=== PATIENT | female | born 1955 | race Caucasian/White ===

== ENCOUNTER 2020-06-27 11:17 | Outpatient (CLI) | payer MEDICARE, MEDICAID | END 2020-06-27 11:18 | disposition home or self-care (01) | LOC: CSHCT 11:17 | PROVIDERS: ATTEND Physician Assistant Medical | DX: K60.2 Anal fissure, unspecified (principal); K62.5 Hemorrhage of anus and rectum; R10.2 Pelvic and perineal pain; R10.32 Left lower quadrant pain; K21.9 Gastro-esophageal reflux disease without esophagitis; R19.4 Change in bowel habit; D35.01 Benign neoplasm of right adrenal gland; Z98.890 Other specified postprocedural states; I70.90 Unspecified atherosclerosis | CPT/HCPCS: 74176 ==

== ENCOUNTER 2021-05-01 19:13 | Inpatient (IN) | payer MEDICARE, MEDICAID ==
[2021-05-01] MEDS ORDERED: Ondansetron PF 4 MG/2 ML Vial ONE (20:09)
[2021-05-01] MEDS ORDERED: Morphine 4 MG/ML VIAL ONE ×4 (20:09→23:35)
[2021-05-01 20:14] LABS: #Basophils 0.1 10x3/uL (0.0-0.2); #Eosinphils 0.6 10x3/uL (0.0-0.5); #Monocytes 0.6 10x3/uL (0.0-1.1); %Basophils 0.6 % (0.0-2.0); %Eosinophils 7.5 % (0.0-6.0); %Lymphocytes 19.8 % (18.0-47.0); %Monocytes 7.9 % (0.0-10.0); %Neutrophils 63.9 % (40.0-75.0); Hemoglobin 14.2 g/dL (12.0-15.5); Mean Corpuscular HGB CONC 33.3 g/dL (32.0-36.0); Mean Corpuscular Hemoglobin 33.3 pg (27.0-33.0); Mean Platelet Volume 8.7 fl (7.4-10.4); Platelet Count 244 10x3/uL (150-450); RBC Distribution Width 12.4 % (11.5-14.5); Red Blood Cell (RBC) Count 4.26 10x6/uL (3.90-5.03); White Blood Cell (WBC) Count 7.9 10x3/uL (3.5-10.5)
[2021-05-01 20:24] LABS: ALT (SGPT) 14 U/L (8-55); AST (SGOT) 16 U/L (5-34); Albumin 4.5 g/dL (3.4-4.8); Alkaline Phosphatase 114 U/L (40-110); Anion Gap 14 mmol/L (10-20); BUN (Urea Nitrogen) 12 mg/dL (9.8-20.1); Bilirubin, Total 0.3 mg/dL (0.2-1.2); CK (CPK) 61 U/L (29-168); Calc. Creatinine Clearance 0 mL/min (70-130); Calcium 9.4 mg/dL (7.8-10.44); Carbon Dioxide 26 mmol/L (23-31); Chloride 103 mmol/L (98-107); Globulin 2.6 g/dL (2.4-3.5); Glucose 116 mg/dL (80-115); Lipase 11 U/L (8-78); Magnesium 1.9 mg/dL (1.6-2.6); Potassium 4.2 mmol/L (3.5-5.1); Protein, Total 7.1 g/dL (5.8-8.1); Sodium 139 mmol/L (136-145)
[2021-05-01 21:45] LABS: Bilirubin Neg (Negative); Blood, Urine 25 (Negative); Clarity Clear (Clear); Glucose, Urine (Dipstick) Normal (Negative); Ketone, Urine Negative (Negative); Leukocyte 500 (Negative); Nitrite Negative (Negative); Protein, Urine (Dipstick) Negative (Neg-Trace); Urobilinogen Normal mg/dL (Less than 2); pH, Urine 6.5 (5.0-9.0)
[2021-05-01 21:55] LABS: Bacteria/HPF 3+ HPF (None Seen); Mucous/LPF 1+ LPF (<2+); RBC/HPF 0-3 HPF (0-3); Squamous Epithelial 0-3 HPF (0-3)
[2021-05-02] MEDS ORDERED: Ondansetron PF 4 MG/2 ML Vial IVP PRN (00:24)
[2021-05-02] MEDS ORDERED: HYDROmorphone 0.5 MG/0.5 ML SYRINGE SLOW IVP SCH (00:30)
[2021-05-02] MEDS ORDERED: Promethazine HCl 12.5 MG in Sodium Chloride 0.9% 50 ML IVPB SCH (00:30)
[2021-05-02] MEDS ORDERED: Fentanyl 100 MCG/2 ML VIAL SLOW IVP PRN (00:30)
[2021-05-02 00:39] VITALS: BMI 24.9
[2021-05-02] MEDS: cefTRIAXone\\ROCEPHIN 1 GM in Sodium Chloride 0.9% 100 ML IVPB SCH (01:35)
[2021-05-02] MEDS: Lactated Ringer's 1,000 ML IV SCH ×4 (02:30→23:02)
[2021-05-02] MEDS ORDERED: FLU VACC QS2021-22(65YR UP)/PF 240 MCG/0.7 ML SYRINGE IM ONE (03:30)
[2021-05-02 03:45] LABS: #Basophils 0.1 10x3/uL (0.0-0.2); #Eosinphils 0.1 10x3/uL (0.0-0.5); #Monocytes 0.4 10x3/uL (0.0-1.1); #Neutrophils 12.8 10x3/uL (1.5-8.4); %Basophils 0.4 % (0.0-2.0); %Eosinophils 0.6 % (0.0-6.0); %Lymphocytes 7.5 % (18.0-47.0); Hemoglobin 16.8 g/dL (12.0-15.5); Mean Corpuscular HGB CONC 33.1 g/dL (32.0-36.0); Mean Corpuscular Hemoglobin 33.5 pg (27.0-33.0); Mean Corpuscular Volume 101.4 fl (81.6-98.3); Mean Platelet Volume 9.2 fl (7.4-10.4); Platelet Count 245 10x3/uL (150-450); RBC Distribution Width 12.4 % (11.5-14.5); Red Blood Cell (RBC) Count 5.01 10x6/uL (3.90-5.03); White Blood Cell (WBC) Count 14.6 10x3/uL (3.5-10.5)
[2021-05-02 03:53] LABS: ALT (SGPT) 10 U/L (8-55); AST (SGOT) 14 U/L (5-34); Alkaline Phosphatase 117 U/L (40-110); Anion Gap 15 mmol/L (10-20); BUN (Urea Nitrogen) 11 mg/dL (9.8-20.1); Bilirubin, Total 0.2 mg/dL (0.2-1.2); Calc. Creatinine Clearance 82 mL/min (70-130); Calcium 8.9 mg/dL (7.8-10.44); Carbon Dioxide 22 mmol/L (23-31); Chloride 106 mmol/L (98-107); Globulin 2.8 g/dL (2.4-3.5); Glucose 214 mg/dL (80-115); Potassium 4.6 mmol/L (3.5-5.1); Protein, Total 6.8 g/dL (5.8-8.1); Sodium 138 mmol/L (136-145)
[2021-05-02 03:55] LABS: SARS-CoV-2 NAA Rapid Test Not Detected (NotDetected)
[2021-05-02 04:02] LABS: Platelet Morphology Comment Appears Adequate
[2021-05-02] MEDS: Morphine 4 MG/ML VIAL SLOW IVP PRN (06:01)
[2021-05-02] MEDS: Mometasone 100 MCG/PUFF (1 INHALER) INH SCH ×2 (07:15→19:03)
[2021-05-02] MEDS: Enoxaparin Sodium 40 MG/0.4 ML SYRINGE SC SCH (08:12)
[2021-05-02] MEDS: Famotidine/PF 20 mg/2ml Vial SLOW IVP SCH ×2 (09:26→21:13)
[2021-05-02] MEDS ORDERED: Bupivacaine 0.25% HCL 30 ML VIAL ONE (10:13)
[2021-05-02] MEDS ORDERED: EPINEPHrine 1 MG/ML AMP ONE (10:13)
[2021-05-02] MEDS: Nicotine 21 MG PATCH TD SCH (10:28)
[2021-05-02] MEDS ORDERED: Ondansetron PF 4 MG/2 ML Vial ONE ×2 (11:10→11:23)
[2021-05-02] MEDS ORDERED: Metoclopramide HCl 10 MG/2 ML VIAL ONE (11:23)
[2021-05-02] MEDS ORDERED: Dexamethasone 4 mg/ml Vial ONE (11:23)
[2021-05-02] MEDS ORDERED: Glycopyrrolate 0.2 MG/ML 5 ML SYRINGE ONE (11:23)
[2021-05-02] MEDS ORDERED: Rocuronium Bromide 10 MG/ML (10ML VIAL) ONE (11:23)
[2021-05-02] MEDS ORDERED: PROPOFOL 20 ML ONE (11:23)
[2021-05-02] MEDS ORDERED: Succinylcholine 200 MG/10 ml SYRINGE FS ONE (11:23)
[2021-05-02] MEDS ORDERED: Fentanyl 100 MCG/2 ML VIAL ONE ×2 (11:23→13:41)
[2021-05-02] MEDS ORDERED: Lidocaine 1% PF 5 ML VIAL ONE (11:23)
[2021-05-02] MEDS ORDERED: PHENYLEPHRINE-NS 100 MCG/ML 10 ML SYRINGE ONE (11:50)
[2021-05-02] MEDS ORDERED: fentaNYL Citrate/PF 1,000 MCG, Admixture Fee 1 EACH in Sodium Chloride 0.9% 30 ML IV PRN (13:45)
[2021-05-02] MEDS ORDERED: Promethazine HCl 25 MG/ML VIAL IM PRN (13:45)
[2021-05-02] MEDS ORDERED: Zolpidem Tartrate 5 MG TAB PO PRN (13:45)
[2021-05-02] MEDS ORDERED: Naloxone HCl 0.4 mg/ml Vial IV PRN (13:45)
[2021-05-02 14:41] LABS: Magnesium 1.8 mg/dL (1.6-2.6)
[2021-05-02] MEDS: Ketorolac Tromethamine 30 MG/ML VIAL IVP SCH (18:04)
[2021-05-03] MEDS: cefTRIAXone\\ROCEPHIN 1 GM in Sodium Chloride 0.9% 100 ML IVPB SCH (00:26)
[2021-05-03] MEDS: Ketorolac Tromethamine 30 MG/ML VIAL IVP SCH ×4 (00:27→18:20)
[2021-05-03 05:25] LABS: #Eosinphils 0.2 10x3/uL (0.0-0.5); #Monocytes 1.1 10x3/uL (0.0-1.1); #Neutrophils 7.6 10x3/uL (1.5-8.4); %Basophils 0.3 % (0.0-2.0); %Eosinophils 1.7 % (0.0-6.0); %Lymphocytes 17.7 % (18.0-47.0); %Monocytes 10.4 % (0.0-10.0); %Neutrophils 69.6 % (40.0-75.0); Hemoglobin 12.7 g/dL (12.0-15.5); Mean Corpuscular HGB CONC 31.4 g/dL (32.0-36.0); Mean Corpuscular Volume 104.9 fl (81.6-98.3); Mean Platelet Volume 8.9 fl (7.4-10.4); Platelet Count 209 10x3/uL (150-450); RBC Distribution Width 12.8 % (11.5-14.5); Red Blood Cell (RBC) Count 3.85 10x6/uL (3.90-5.03); White Blood Cell (WBC) Count 10.9 10x3/uL (3.5-10.5)
[2021-05-03 05:27] LABS: Anion Gap 14 mmol/L (10-20); BUN (Urea Nitrogen) 26 mg/dL (9.8-20.1); Calc. Creatinine Clearance 64 mL/min (70-130); Calcium 8.5 mg/dL (7.8-10.44); Carbon Dioxide 26 mmol/L (23-31); Chloride 105 mmol/L (98-107); Glucose 117 mg/dL (80-115); Potassium 5.1 mmol/L (3.5-5.1); Sodium 140 mmol/L (136-145)
[2021-05-03] MEDS: Mometasone 100 MCG/PUFF (1 INHALER) INH SCH ×2 (07:55→19:10)
[2021-05-03] MEDS: Enoxaparin Sodium 40 MG/0.4 ML SYRINGE SC SCH (08:17)
[2021-05-03] MEDS: Nicotine 21 MG PATCH TD SCH (08:17)
[2021-05-03] MEDS: Famotidine/PF 20 mg/2ml Vial SLOW IVP SCH ×2 (08:17→20:41)
[2021-05-03] MEDS: Lactated Ringer's 1,000 ML IV SCH ×2 (09:01→17:23)
[2021-05-03] MEDS ORDERED: Acetaminophen 500 MG TAB PO SCH (16:00)
[2021-05-04] MEDS: cefTRIAXone\\ROCEPHIN 1 GM in Sodium Chloride 0.9% 100 ML IVPB SCH (00:48)
[2021-05-04] MEDS: Ketorolac Tromethamine 30 MG/ML VIAL IVP SCH ×3 (00:49→12:04)
[2021-05-04] MEDS: Lactated Ringer's 1,000 ML IV SCH ×2 (03:20→11:53)
[2021-05-04 05:15] LABS: #Eosinphils 0.3 10x3/uL (0.0-0.5); #Monocytes 0.5 10x3/uL (0.0-1.1); #Neutrophils 3.3 10x3/uL (1.5-8.4); %Basophils 0.4 % (0.0-2.0); %Eosinophils 5.7 % (0.0-6.0); %Lymphocytes 22.8 % (18.0-47.0); %Monocytes 8.8 % (0.0-10.0); %Neutrophils 62.1 % (40.0-75.0); Hemoglobin 9.4 g/dL (12.0-15.5); Mean Corpuscular HGB CONC 32.3 g/dL (32.0-36.0); Mean Corpuscular Hemoglobin 33.9 pg (27.0-33.0); Mean Corpuscular Volume 105.1 fl (81.6-98.3); Mean Platelet Volume 8.9 fl (7.4-10.4); Platelet Count 135 10x3/uL (150-450); RBC Distribution Width 12.4 % (11.5-14.5); Red Blood Cell (RBC) Count 2.77 10x6/uL (3.90-5.03); White Blood Cell (WBC) Count 5.2 10x3/uL (3.5-10.5)
[2021-05-04 05:29] LABS: Anion Gap 9 mmol/L (10-20); BUN (Urea Nitrogen) 9 mg/dL (9.8-20.1); Calc. Creatinine Clearance 86 mL/min (70-130); Carbon Dioxide 30 mmol/L (23-31); Chloride 108 mmol/L (98-107); Glucose 97 mg/dL (80-115); Potassium 4.2 mmol/L (3.5-5.1); Sodium 143 mmol/L (136-145)
[2021-05-04 05:30] LABS: Macrocytosis SLIGHT = 6-15 cells (100X) (0-5/hpf)
[2021-05-04 05:31] LABS: Platelet Morphology Comment Appears Adequate
[2021-05-04] MEDS: Mometasone 100 MCG/PUFF (1 INHALER) INH SCH ×2 (07:44→19:00)
[2021-05-04] MEDS: Nicotine 21 MG PATCH TD SCH (09:28)
[2021-05-04] MEDS: Enoxaparin Sodium 40 MG/0.4 ML SYRINGE SC SCH (09:28)
[2021-05-04] MEDS: Famotidine/PF 20 mg/2ml Vial SLOW IVP SCH ×2 (09:28→21:05)
[2021-05-04] MEDS ORDERED: Polyethylene Glycol 3350 17 GM Packet PO SCH (10:15)
[2021-05-04] MEDS: HYDROcodone/Acetaminophen 10/325 mg Tablet PO PRN ×2 (16:53→21:04)
[2021-05-05] MEDS: HYDROcodone/Acetaminophen 10/325 mg Tablet PO PRN ×6 (01:08→22:39)
[2021-05-05] MEDS: cefTRIAXone\\ROCEPHIN 1 GM in Sodium Chloride 0.9% 100 ML IVPB SCH (01:10)
[2021-05-05 05:09] LABS: #Eosinphils 0.4 10x3/uL (0.0-0.5); #Monocytes 0.4 10x3/uL (0.0-1.1); #Neutrophils 3.1 10x3/uL (1.5-8.4); %Basophils 0.2 % (0.0-2.0); %Eosinophils 7.4 % (0.0-6.0); %Lymphocytes 21.1 % (18.0-47.0); %Neutrophils 63.1 % (40.0-75.0); Hemoglobin 9.2 g/dL (12.0-15.5); Mean Corpuscular HGB CONC 32.5 g/dL (32.0-36.0); Mean Corpuscular Hemoglobin 33.8 pg (27.0-33.0); Platelet Count 157 10x3/uL (150-450); RBC Distribution Width 12.2 % (11.5-14.5); Red Blood Cell (RBC) Count 2.72 10x6/uL (3.90-5.03)
[2021-05-05 05:17] LABS: Anion Gap 11 mmol/L (10-20); BUN (Urea Nitrogen) 7 mg/dL (9.8-20.1); Calc. Creatinine Clearance 86 mL/min (70-130); Calcium 8.2 mg/dL (7.8-10.44); Carbon Dioxide 29 mmol/L (23-31); Chloride 105 mmol/L (98-107); Glucose 96 mg/dL (80-115); Potassium 4.2 mmol/L (3.5-5.1); Sodium 141 mmol/L (136-145)
[2021-05-05] MEDS: Lactated Ringer's 1,000 ML IV SCH ×3 (07:08→17:32)
[2021-05-05] MEDS: Mometasone 100 MCG/PUFF (1 INHALER) INH SCH ×2 (08:30→20:37)
[2021-05-05] MEDS: Nicotine 21 MG PATCH TD SCH (08:33)
[2021-05-05] MEDS: Famotidine/PF 20 mg/2ml Vial SLOW IVP SCH ×2 (08:33→20:10)
[2021-05-05] MEDS: Polyethylene Glycol 3350 17 GM Packet PO SCH (08:34)
[2021-05-05] MEDS: Enoxaparin Sodium 40 MG/0.4 ML SYRINGE SC SCH (08:35)
[2021-05-05] MEDS: Ondansetron PF 4 MG/2 ML Vial IVP PRN (08:56)
[2021-05-05] MEDS: Morphine 4 MG/ML VIAL SLOW IVP PRN (20:09)
[2021-05-05] MEDS: diphenhydrAMINE 50 MG/ML VIAL IM/IV PRN (22:45)
[2021-05-06] MEDS: Morphine 4 MG/ML VIAL SLOW IVP PRN (00:40)
[2021-05-06] MEDS: diphenhydrAMINE 50 MG/ML VIAL IM/IV PRN ×3 (00:41→22:01)
[2021-05-06 04:19] LABS: Anion Gap 13 mmol/L (10-20); BUN (Urea Nitrogen) 6 mg/dL (9.8-20.1); Calc. Creatinine Clearance 79 mL/min (70-130); Calcium 8.8 mg/dL (7.8-10.44); Carbon Dioxide 29 mmol/L (23-31); Chloride 104 mmol/L (98-107); Glucose 100 mg/dL (80-115); Potassium 4.2 mmol/L (3.5-5.1); Sodium 142 mmol/L (136-145)
[2021-05-06 04:27] LABS: #Eosinphils 0.4 10x3/uL (0.0-0.5); #Monocytes 0.5 10x3/uL (0.0-1.1); #Neutrophils 2.9 10x3/uL (1.5-8.4); %Basophils 0.2 % (0.0-2.0); %Eosinophils 7.7 % (0.0-6.0); %Lymphocytes 23.6 % (18.0-47.0); %Monocytes 9.4 % (0.0-10.0); %Neutrophils 58.7 % (40.0-75.0); Hemoglobin 9.5 g/dL (12.0-15.5); Mean Corpuscular HGB CONC 32.4 g/dL (32.0-36.0); Mean Corpuscular Hemoglobin 33.3 pg (27.0-33.0); Mean Corpuscular Volume 102.8 fl (81.6-98.3); Mean Platelet Volume 8.8 fl (7.4-10.4); Platelet Count 180 10x3/uL (150-450); RBC Distribution Width 11.9 % (11.5-14.5); Red Blood Cell (RBC) Count 2.85 10x6/uL (3.90-5.03); White Blood Cell (WBC) Count 4.9 10x3/uL (3.5-10.5)
[2021-05-06] MEDS: HYDROcodone/Acetaminophen 10/325 mg Tablet PO PRN ×5 (04:43→22:01)
[2021-05-06] MEDS: Mometasone 100 MCG/PUFF (1 INHALER) INH SCH ×2 (05:29→19:00)
[2021-05-06] MEDS: Enoxaparin Sodium 40 MG/0.4 ML SYRINGE SC SCH (09:03)
[2021-05-06] MEDS: Famotidine/PF 20 mg/2ml Vial SLOW IVP SCH ×2 (09:04→21:51)
[2021-05-06] MEDS: Polyethylene Glycol 3350 17 GM Packet PO SCH (09:06)
[2021-05-06] MEDS: Nicotine 21 MG PATCH TD SCH (10:08)
[2021-05-06] MEDS ORDERED: Docusate 100 MG CAP PO PRN (14:38)
[2021-05-06] MEDS: diphenhydrAMINE 25 MG CAP PO PRN (15:01)
[2021-05-07] MEDS: HYDROcodone/Acetaminophen 10/325 mg Tablet PO PRN ×4 (05:14→19:22)
[2021-05-07] MEDS: Mometasone 100 MCG/PUFF (1 INHALER) INH SCH ×2 (07:29→18:49)
[2021-05-07] MEDS ORDERED: Lorazepam 0.5 MG TAB PO PRN (09:01)
[2021-05-07] MEDS ORDERED: Sodium Chloride 0.65% Nasal 44 ML BOT EA NARE PRN (09:06)
[2021-05-07] MEDS ORDERED: Baclofen 10 MG TAB PO PRN (09:08)
[2021-05-07] MEDS ORDERED: Citalopram 20 MG TAB PO SCH (09:15)
[2021-05-07] MEDS: Bupropion 150 MG SR TAB PO SCH ×2 (09:39→21:11)
[2021-05-07] MEDS: Enoxaparin Sodium 40 MG/0.4 ML SYRINGE SC SCH (09:39)
[2021-05-07] MEDS: Famotidine/PF 20 mg/2ml Vial SLOW IVP SCH ×2 (09:39→21:11)
[2021-05-07] MEDS: Gabapentin 300 MG CAP PO SCH ×3 (09:40→21:15)
[2021-05-07] MEDS: Nicotine 21 MG PATCH TD SCH (09:45)
[2021-05-07] MEDS: Polyethylene Glycol 3350 17 GM Packet PO SCH (09:45)
[2021-05-07] MEDS ORDERED: Magnesium Citrate 300 ML BOT PO SCH (17:00)
[2021-05-07] MEDS: diphenhydrAMINE 25 MG CAP PO PRN (17:55)
[2021-05-08] MEDS: Mometasone 100 MCG/PUFF (1 INHALER) INH SCH ×2 (07:29→23:06)
[2021-05-08] MEDS ORDERED: Enoxaparin Sodium 40 MG/0.4 ML SYRINGE ONE (08:06)
[2021-05-08] MEDS: Polyethylene Glycol 3350 17 GM Packet PO SCH (08:41)
[2021-05-08] MEDS: Bupropion 150 MG SR TAB PO SCH ×2 (08:41→20:50)
[2021-05-08] MEDS: Enoxaparin Sodium 40 MG/0.4 ML SYRINGE SC SCH (08:41)
[2021-05-08] MEDS: Nicotine 21 MG PATCH TD SCH (08:41)
[2021-05-08] MEDS: Gabapentin 300 MG CAP PO SCH ×3 (08:42→20:50)
[2021-05-08] MEDS: Famotidine/PF 20 mg/2ml Vial SLOW IVP SCH ×2 (08:42→20:49)
[2021-05-08] MEDS: Citalopram 20 MG TAB PO SCH (08:42)
[2021-05-08] MEDS: HYDROcodone/Acetaminophen 10/325 mg Tablet PO PRN ×4 (08:47→20:51)
[2021-05-08] MEDS ORDERED: Fleet Enema 133 ML BOT PR PRN (09:47)
[2021-05-08] MEDS ORDERED: Bisacodyl 10 MG SUPP PR PRN (09:49)
[2021-05-08] MEDS ORDERED: ADMIXTURE FEE IVPB SCH (14:00)
[2021-05-08] MEDS ORDERED: [UNRECOGNIZED DRUG - OTHER] IVPB SCH (14:00)
[2021-05-08] MEDS ORDERED: METHYLPREDNISOLONE SOD SUCC IVPB SCH (14:00)
[2021-05-08 15:11] LABS: #Eosinphils 0.5 10x3/uL (0.0-0.5); #Monocytes 0.9 10x3/uL (0.0-1.1); %Basophils 0.1 % (0.0-2.0); %Eosinophils 6.1 % (0.0-6.0); %Monocytes 10.9 % (0.0-10.0); %Neutrophils 62.6 % (40.0-75.0); Hemoglobin 9.8 g/dL (12.0-15.5); Mean Corpuscular HGB CONC 32.6 g/dL (32.0-36.0); Mean Corpuscular Hemoglobin 33.7 pg (27.0-33.0); Mean Corpuscular Volume 103.4 fl (81.6-98.3); Mean Platelet Volume 8.4 fl (7.4-10.4); Platelet Count 227 10x3/uL (150-450); RBC Distribution Width 12.3 % (11.5-14.5); Red Blood Cell (RBC) Count 2.91 10x6/uL (3.90-5.03); White Blood Cell (WBC) Count 7.9 10x3/uL (3.5-10.5)
[2021-05-08] MEDS ORDERED: Vancomycin 1 GM in Premix Bag 1 BAG IVPB SCH ×2 (15:15→21:00)
[2021-05-08 15:21] LABS: Anion Gap 11 mmol/L (10-20); BUN (Urea Nitrogen) 9 mg/dL (9.8-20.1); Calc. Creatinine Clearance 71 mL/min (70-130); Calcium 8.4 mg/dL (7.8-10.44); Carbon Dioxide 27 mmol/L (23-31); Chloride 102 mmol/L (98-107); Glucose 132 mg/dL (80-115); Potassium 4.2 mmol/L (3.5-5.1); Sodium 136 mmol/L (136-145)
[2021-05-08] MEDS ORDERED: VANCOMYCIN 1.25 GM/250 ML BAG 1.25 GM in Premix Bag 1 BAG IVPB SCH (16:00)
[2021-05-08] MEDS: Cefepime 2 GM in Sodium Chloride 0.9% 100 ML IVPB SCH (17:49)
[2021-05-08] MEDS ORDERED: methylPREDNISolone Sod Succ/PF 40 MG in Sodium Chloride 0.9% 250 ML 250 ML IVPB SCH (21:00)
[2021-05-08] MEDS ORDERED: methylPREDNISolone Sod Succ 40 MG VIAL IVP SCH (21:00)
[2021-05-09] MEDS: HYDROcodone/Acetaminophen 10/325 mg Tablet PO PRN ×5 (01:36→21:52)
[2021-05-09] MEDS: Cefepime 2 GM in Sodium Chloride 0.9% 100 ML IVPB SCH ×2 (05:15→17:00)
[2021-05-09] MEDS: Mometasone 100 MCG/PUFF (1 INHALER) INH SCH ×2 (06:54→19:09)
[2021-05-09] MEDS: Citalopram 20 MG TAB PO SCH (09:36)
[2021-05-09] MEDS: Gabapentin 300 MG CAP PO SCH ×3 (09:36→21:51)
[2021-05-09] MEDS: Bupropion 150 MG SR TAB PO SCH ×2 (09:36→21:53)
[2021-05-09] MEDS: Enoxaparin Sodium 40 MG/0.4 ML SYRINGE SC SCH (09:38)
[2021-05-09] MEDS: Famotidine/PF 20 mg/2ml Vial SLOW IVP SCH ×2 (09:38→21:53)
[2021-05-09] MEDS: Triple Antibiotic Ointment 30 GM TUBE TOP SCH ×2 (09:39→21:48)
[2021-05-09] MEDS: methylPREDNISolone Sod Succ 40 MG VIAL IVP SCH ×2 (09:39→17:01)
[2021-05-09] MEDS: Nicotine 21 MG PATCH TD SCH (09:40)
[2021-05-09] MEDS: Morphine 4 MG/ML VIAL SLOW IVP PRN ×4 (09:47→20:36)
[2021-05-09 15:02] LABS: SARS-CoV-2 NAA Rapid Test Not Detected (NotDetected)
[2021-05-09] MEDS ORDERED: Vancomycin HCl 750 MG in Sodium Chloride 0.9% 250 ML 250 ML IVPB SCH (16:00)
[2021-05-10] MEDS: Morphine 4 MG/ML VIAL SLOW IVP PRN ×5 (00:21→19:31)
[2021-05-10] MEDS: HYDROcodone/Acetaminophen 10/325 mg Tablet PO PRN ×4 (02:36→21:35)
[2021-05-10 04:17] LABS: #Monocytes 1.3 10x3/uL (0.0-1.1); #Neutrophils 11.3 10x3/uL (1.5-8.4); %Basophils 0.1 % (0.0-2.0); %Lymphocytes 8.7 % (18.0-47.0); %Monocytes 9.5 % (0.0-10.0); %Neutrophils 79.4 % (40.0-75.0); Hemoglobin 9.1 g/dL (12.0-15.5); Mean Corpuscular HGB CONC 32.2 g/dL (32.0-36.0); Mean Corpuscular Hemoglobin 32.9 pg (27.0-33.0); Mean Corpuscular Volume 102.2 fl (81.6-98.3); Mean Platelet Volume 8.9 fl (7.4-10.4); Platelet Count 307 10x3/uL (150-450); RBC Distribution Width 12.3 % (11.5-14.5); Red Blood Cell (RBC) Count 2.77 10x6/uL (3.90-5.03); White Blood Cell (WBC) Count 14.2 10x3/uL (3.5-10.5)
[2021-05-10 04:39] LABS: Anion Gap 13 mmol/L (10-20); BUN (Urea Nitrogen) 8 mg/dL (9.8-20.1); Calc. Creatinine Clearance 83 mL/min (70-130); Calcium 8.7 mg/dL (7.8-10.44); Carbon Dioxide 25 mmol/L (23-31); Chloride 107 mmol/L (98-107); Glucose 143 mg/dL (80-115); Potassium 4.5 mmol/L (3.5-5.1); Sodium 140 mmol/L (136-145)
[2021-05-10] MEDS: Cefepime 2 GM in Sodium Chloride 0.9% 100 ML IVPB SCH ×2 (04:47→16:03)
[2021-05-10] MEDS: Famotidine/PF 20 mg/2ml Vial SLOW IVP SCH ×2 (08:10→21:31)
[2021-05-10] MEDS: Enoxaparin Sodium 40 MG/0.4 ML SYRINGE SC SCH (08:11)
[2021-05-10] MEDS: Gabapentin 300 MG CAP PO SCH ×3 (08:12→21:31)
[2021-05-10] MEDS: Bupropion 150 MG SR TAB PO SCH ×2 (08:13→21:36)
[2021-05-10] MEDS: Citalopram 20 MG TAB PO SCH (08:13)
[2021-05-10] MEDS: methylPREDNISolone Sod Succ 40 MG VIAL IVP SCH ×3 (08:13→21:36)
[2021-05-10] MEDS: Mometasone 100 MCG/PUFF (1 INHALER) INH SCH ×2 (08:29→18:26)
[2021-05-10] MEDS: Nicotine 21 MG PATCH TD SCH (08:41)
[2021-05-10] MEDS: Ondansetron PF 4 MG/2 ML Vial IVP PRN ×2 (15:45→21:45)
[2021-05-10] MEDS ORDERED: Sodium Chloride 0.9% 100 ML ONE (16:02)
[2021-05-10] MEDS ORDERED: Cefepime 2 GM VIAL ONE (16:02)
[2021-05-10] MEDS ORDERED: Artificial Tear Sol 15 ML BOT EA EYE PRN (17:20)
[2021-05-10] MEDS: Triple Antibiotic Ointment 30 GM TUBE TOP SCH ×2 (21:14→21:37)
[2021-05-11 04:09] LABS: #Monocytes 0.3 10x3/uL (0.0-1.1); %Basophils 0.2 % (0.0-2.0); %Monocytes 2.8 % (0.0-10.0); %Neutrophils 89.2 % (40.0-75.0); Hemoglobin 10.3 g/dL (12.0-15.5); Mean Corpuscular HGB CONC 32.7 g/dL (32.0-36.0); Mean Corpuscular Hemoglobin 33.9 pg (27.0-33.0); Mean Corpuscular Volume 103.6 fl (81.6-98.3); Mean Platelet Volume 8.6 fl (7.4-10.4); Platelet Count 349 10x3/uL (150-450); RBC Distribution Width 12.5 % (11.5-14.5); Red Blood Cell (RBC) Count 3.04 10x6/uL (3.90-5.03); White Blood Cell (WBC) Count 10.1 10x3/uL (3.5-10.5)
[2021-05-11] MEDS: Cefepime 2 GM in Sodium Chloride 0.9% 100 ML IVPB SCH ×2 (04:12→17:09)
[2021-05-11 04:17] LABS: Anion Gap 14 mmol/L (10-20); BUN (Urea Nitrogen) 8 mg/dL (9.8-20.1); Calc. Creatinine Clearance 80 mL/min (70-130); Carbon Dioxide 28 mmol/L (23-31); Chloride 106 mmol/L (98-107); Glucose 129 mg/dL (80-115); Potassium 4.7 mmol/L (3.5-5.1); Sodium 143 mmol/L (136-145)
[2021-05-11] MEDS: HYDROcodone/Acetaminophen 10/325 mg Tablet PO PRN ×5 (04:24→22:45)
[2021-05-11] MEDS: Morphine 4 MG/ML VIAL SLOW IVP PRN ×4 (06:07→19:35)
[2021-05-11] MEDS: Mometasone 100 MCG/PUFF (1 INHALER) INH SCH ×2 (07:19→19:11)
[2021-05-11] MEDS: Gabapentin 300 MG CAP PO SCH ×3 (08:50→20:31)
[2021-05-11] MEDS: Bupropion 150 MG SR TAB PO SCH ×2 (08:51→20:32)
[2021-05-11] MEDS: Citalopram 20 MG TAB PO SCH (08:51)
[2021-05-11] MEDS: Famotidine/PF 20 mg/2ml Vial SLOW IVP SCH (08:52)
[2021-05-11] MEDS: methylPREDNISolone Sod Succ 40 MG VIAL IVP SCH (08:52)
[2021-05-11] MEDS: Enoxaparin Sodium 40 MG/0.4 ML SYRINGE SC SCH (08:52)
[2021-05-11] MEDS ORDERED: Famotidine 20 MG TAB PO SCH (09:30)
[2021-05-11] MEDS ORDERED: Milk Of Magnesia 30 ML UDCUP PO SCH (09:30)
[2021-05-11] MEDS ORDERED: Senokot S 8.6-50 MG TAB PO SCH (09:30)
[2021-05-11] MEDS ORDERED: Polyethylene Glycol 3350 17 GM Packet PO SCH (09:30)
[2021-05-11] MEDS: Triple Antibiotic Ointment 30 GM TUBE TOP SCH ×2 (09:34→22:00)
[2021-05-11] MEDS: Nicotine 21 MG PATCH TD SCH (10:31)
[2021-05-11] MEDS: Famotidine 20 MG TAB PO SCH (20:32)
[2021-05-11] MEDS: Senokot S 8.6-50 MG TAB PO SCH (20:32)
[2021-05-12 00:27] LABS: Hemoglobin A1c 5.2 % (4.0-6.0)
[2021-05-12] MEDS: Cefepime 2 GM in Sodium Chloride 0.9% 100 ML IVPB SCH ×2 (03:15→15:31)
[2021-05-12] MEDS: HYDROcodone/Acetaminophen 10/325 mg Tablet PO PRN ×5 (03:16→21:23)
[2021-05-12 04:34] LABS: #Eosinphils 0.2 10x3/uL (0.0-0.5); #Monocytes 0.8 10x3/uL (0.0-1.1); #Neutrophils 4.2 10x3/uL (1.5-8.4); %Basophils 0.6 % (0.0-2.0); %Eosinophils 2.8 % (0.0-6.0); %Lymphocytes 20.9 % (18.0-47.0); %Monocytes 11.7 % (0.0-10.0); Hemoglobin 10.1 g/dL (12.0-15.5); Mean Corpuscular HGB CONC 31.8 g/dL (32.0-36.0); Mean Corpuscular Hemoglobin 33.4 pg (27.0-33.0); Mean Corpuscular Volume 105.3 fl (81.6-98.3); Mean Platelet Volume 8.5 fl (7.4-10.4); Platelet Count 373 10x3/uL (150-450); RBC Distribution Width 12.4 % (11.5-14.5); Red Blood Cell (RBC) Count 3.02 10x6/uL (3.90-5.03); White Blood Cell (WBC) Count 6.7 10x3/uL (3.5-10.5)
[2021-05-12 04:50] LABS: Anion Gap 15 mmol/L (10-20); BUN (Urea Nitrogen) 8 mg/dL (9.8-20.1); Calc. Creatinine Clearance 72 mL/min (70-130); Calcium 8.7 mg/dL (7.8-10.44); Carbon Dioxide 29 mmol/L (23-31); Chloride 104 mmol/L (98-107); Glucose 87 mg/dL (80-115); Magnesium 2.2 mg/dL (1.6-2.6); Phosphorus 3.5 mg/dL (2.3-4.7); Potassium 4.5 mmol/L (3.5-5.1); Sodium 143 mmol/L (136-145)
[2021-05-12 05:54] LABS: Platelet Morphology Comment Appears Adequate; RBC Morphology Normal
[2021-05-12] MEDS: Mometasone 100 MCG/PUFF (1 INHALER) INH SCH ×2 (07:40→20:50)
[2021-05-12] MEDS ORDERED: Polyethylene Glycol 3350 17 GM Packet ONE (07:50)
[2021-05-12] MEDS ORDERED: Magnesium Citrate 300 ML BOT PO SCH (08:45)
[2021-05-12] MEDS: Gabapentin 300 MG CAP PO SCH ×3 (09:29→21:24)
[2021-05-12] MEDS: Citalopram 20 MG TAB PO SCH (09:30)
[2021-05-12] MEDS: predniSONE 20 MG TAB PO SCH (09:30)
[2021-05-12] MEDS: Bupropion 150 MG SR TAB PO SCH ×2 (09:30→21:24)
[2021-05-12] MEDS: Nicotine 21 MG PATCH TD SCH (09:36)
[2021-05-12] MEDS: Polyethylene Glycol 3350 17 GM Packet PO SCH ×2 (09:37→10:00)
[2021-05-12] MEDS: Enoxaparin Sodium 40 MG/0.4 ML SYRINGE SC SCH (09:37)
[2021-05-12] MEDS: Morphine 4 MG/ML VIAL SLOW IVP PRN ×3 (09:53→23:00)
[2021-05-12] MEDS: Famotidine 20 MG TAB PO SCH ×2 (10:00→21:24)
[2021-05-12] MEDS: Senokot S 8.6-50 MG TAB PO SCH ×2 (10:01→21:24)
[2021-05-12] MEDS ORDERED: Bisacodyl 10 MG SUPP PR SCH (14:00)
[2021-05-12] MEDS: Triple Antibiotic Ointment 30 GM TUBE TOP SCH ×2 (17:40→21:25)
[2021-05-12] MEDS ORDERED: Simethicone Chewable 80 MG TAB PO SCH (23:30)
[2021-05-13] MEDS: HYDROcodone/Acetaminophen 10/325 mg Tablet PO PRN ×3 (01:23→13:10)
[2021-05-13] MEDS: Ondansetron PF 4 MG/2 ML Vial IVP PRN ×2 (01:39→13:11)
[2021-05-13] MEDS: Morphine 4 MG/ML VIAL SLOW IVP PRN ×3 (04:42→16:24)
[2021-05-13] MEDS: Cefepime 2 GM in Sodium Chloride 0.9% 100 ML IVPB SCH ×2 (05:01→16:28)
[2021-05-13 05:33] LABS: #Eosinphils 0.3 10x3/uL (0.0-0.5); #Monocytes 0.9 10x3/uL (0.0-1.1); #Neutrophils 10.1 10x3/uL (1.5-8.4); %Basophils 0.2 % (0.0-2.0); %Eosinophils 1.9 % (0.0-6.0); %Lymphocytes 11.6 % (18.0-47.0); %Monocytes 7.2 % (0.0-10.0); %Neutrophils 78.1 % (40.0-75.0); Hemoglobin 11.8 g/dL (12.0-15.5); Mean Corpuscular HGB CONC 32.1 g/dL (32.0-36.0); Mean Corpuscular Hemoglobin 33.1 pg (27.0-33.0); Mean Corpuscular Volume 103.1 fl (81.6-98.3); Mean Platelet Volume 8.5 fl (7.4-10.4); Platelet Count 463 10x3/uL (150-450); RBC Distribution Width 12.2 % (11.5-14.5); Red Blood Cell (RBC) Count 3.57 10x6/uL (3.90-5.03)
[2021-05-13 05:43] LABS: Anion Gap 15 mmol/L (10-20); BUN (Urea Nitrogen) 9 mg/dL (9.8-20.1); Calc. Creatinine Clearance 73 mL/min (70-130); Calcium 9.5 mg/dL (7.8-10.44); Carbon Dioxide 30 mmol/L (23-31); Chloride 99 mmol/L (98-107); Glucose 108 mg/dL (80-115); Magnesium 2.1 mg/dL (1.6-2.6); Phosphorus 4.4 mg/dL (2.3-4.7); Potassium 3.7 mmol/L (3.5-5.1); Sodium 140 mmol/L (136-145)
[2021-05-13] MEDS: Mometasone 100 MCG/PUFF (1 INHALER) INH SCH (07:15)
[2021-05-13] MEDS: Enoxaparin Sodium 40 MG/0.4 ML SYRINGE SC SCH (08:21)
[2021-05-13] MEDS: Bupropion 150 MG SR TAB PO SCH (08:22)
[2021-05-13] MEDS: Famotidine 20 MG TAB PO SCH (08:22)
[2021-05-13] MEDS: Gabapentin 300 MG CAP PO SCH ×2 (08:22→16:27)
[2021-05-13] MEDS: Citalopram 20 MG TAB PO SCH (08:24)
[2021-05-13] MEDS: predniSONE 20 MG TAB PO SCH (08:25)
[2021-05-13] MEDS: Senokot S 8.6-50 MG TAB PO SCH (08:25)
[2021-05-13] MEDS: Nicotine 21 MG PATCH TD SCH (08:26)
[2021-05-13] MEDS: Triple Antibiotic Ointment 30 GM TUBE TOP SCH (13:50)
[2021-05-13 16:55] VITALS: BP 110/65; TEMP 98.7
== END 2021-05-13 18:15 | disposition home or self-care (01) | DRG 329 ==
LOC: CSHERS 19:13 → CSHTELE 05-02 00:31
PROVIDERS: ADMIT Student in an Organized Health Care Education/Training Program; ATTEND Family Medicine
PROC: 0DB80ZZ Excision of Small Intestine, Open Approach (ICD-10-PCS; principal; 2021-05-02)
PROC: 0WJG4ZZ Inspection of Peritoneal Cavity, Percutaneous Endoscopic Approach (ICD-10-PCS; 2021-05-02)
DX: K56.609 Unspecified intestinal obstruction, unspecified as to partial versus complete obstruction (principal); K55.019 Acute (reversible) ischemia of small intestine, extent unspecified; K55.029 Acute infarction of small intestine, extent unspecified; J18.9 Pneumonia, unspecified organism; C21.0 Malignant neoplasm of anus, unspecified; N39.0 Urinary tract infection, site not specified; E87.2 Acidosis; J90 Pleural effusion, not elsewhere classified; J98.11 Atelectasis; J44.0 Chronic obstructive pulmonary disease with (acute) lower respiratory infection; J44.1 Chronic obstructive pulmonary disease with (acute) exacerbation; K91.89 Other postprocedural complications and disorders of digestive system; I10 Essential (primary) hypertension; E78.5 Hyperlipidemia, unspecified; F41.9 Anxiety disorder, unspecified; F31.9 Bipolar disorder, unspecified; G89.29 Other chronic pain; K21.9 Gastro-esophageal reflux disease without esophagitis; M54.2 Cervicalgia; M54.9 Dorsalgia, unspecified; Z20.822 Contact with and (suspected) exposure to COVID-19; D53.9 Nutritional anemia, unspecified; F17.210 Nicotine dependence, cigarettes, uncomplicated; K56.7 Ileus, unspecified; K59.00 Constipation, unspecified; Y83.8 Other surgical procedures as the cause of abnormal reaction of the patient, or of later complication, without mention of misadventure at the time of the procedure; Z91.013 Allergy to seafood; Z88.8 Allergy status to other drugs, medicaments and biological substances; Z91.041 Radiographic dye allergy status; Z79.899 Other long term (current) drug therapy; Z85.43 Personal history of malignant neoplasm of ovary; Z92.21 Personal history of antineoplastic chemotherapy; Z92.3 Personal history of irradiation; Z90.710 Acquired absence of both cervix and uterus; Z98.890 Other specified postprocedural states
CPT/HCPCS: 36415; 71045; 71250; 74018; 74177; 80048; 80053; 81003; 81015; 82550; 82607; 82746; 83036; 83605; 83690; 83735; 84100; 84145; 84443; 84484; 85025; 86140; 87081; 87086; 88307; 93005; 94640; 94664; 94760; 96374; 96375; 96376; J0171; J0692; J0696; J1100; J1170; J1200; J1650; J1885; J2270; J2405; J2550; J2704; J2765; J2920; J2930; J3010; J3370; J3490; J7050; J7120; J7512; J7620; S0020; S0028; U0002

== ENCOUNTER 2021-07-11 13:11 | Outpatient (CLI) | payer MEDICARE, MEDICAID | END 2021-07-11 13:12 | disposition home or self-care (01) | LOC: CSHCT 13:11 | PROVIDERS: ATTEND Nurse Practitioner Adult Health | DX: Z12.2 Encounter for screening for malignant neoplasm of respiratory organs (principal); Z87.891 Personal history of nicotine dependence; R91.1 Solitary pulmonary nodule; J44.9 Chronic obstructive pulmonary disease, unspecified; E27.8 Other specified disorders of adrenal gland; I70.90 Unspecified atherosclerosis | CPT/HCPCS: 71271 ==

== ENCOUNTER 2022-01-31 12:36 | Outpatient (CLI) | payer OTHER, MEDICAID | END 2022-01-31 12:37 | disposition home or self-care (01) | LOC: CSHMRI 12:36 | PROVIDERS: ATTEND Nurse Practitioner Adult Health | DX: M54.41 Lumbago with sciatica, right side (principal); G89.29 Other chronic pain; M47.817 Spondylosis without myelopathy or radiculopathy, lumbosacral region; M51.37 Other intervertebral disc degeneration, lumbosacral region; M48.061 Spinal stenosis, lumbar region without neurogenic claudication; N28.1 Cyst of kidney, acquired; N28.9 Disorder of kidney and ureter, unspecified | CPT/HCPCS: 72148 ==

== ENCOUNTER 2022-03-14 12:09 | Outpatient (CLI) | payer OTHER, MEDICAID | END 2022-03-14 12:10 | disposition home or self-care (01) | LOC: CSHCT 12:09 | PROVIDERS: ATTEND Radiology Radiation Oncology | DX: C21.0 Malignant neoplasm of anus, unspecified (principal); Z92.21 Personal history of antineoplastic chemotherapy; Z92.3 Personal history of irradiation; R15.9 Full incontinence of feces; R32 Unspecified urinary incontinence; R91.8 Other nonspecific abnormal finding of lung field; E27.8 Other specified disorders of adrenal gland; K63.89 Other specified diseases of intestine | CPT/HCPCS: 71260; 74177; 82565 ==

== ENCOUNTER 2022-06-26 13:30 | Inpatient (IN) | payer OTHER, MEDICAID ==
[2022-06-26 14:36] LABS: SARS-CoV-2 NAA Rapid Test Not Detected (NotDetected)
[2022-06-26] MEDS ORDERED: Cefepime 2 GM VIAL ONE (15:20)
[2022-06-26 15:37] LABS: ALT (SGPT) 85 U/L (8-55); AST (SGOT) 61 U/L (5-34); Albumin 3.5 g/dL (3.4-4.8); Alkaline Phosphatase 148 U/L (40-110); Anion Gap 17 mmol/L (10-20); BUN (Urea Nitrogen) 11 mg/dL (9.8-20.1); Bilirubin, Total 0.6 mg/dL (0.2-1.2); Calc. Creatinine Clearance 0 mL/min (70-130); Calcium 8.9 mg/dL (7.8-10.44); Carbon Dioxide 27 mmol/L (23-31); Chloride 98 mmol/L (98-107); Estimated GFR 96; Globulin 3.1 g/dL (2.4-3.5); Glucose 95 mg/dL (80-115); Potassium 3.8 mmol/L (3.5-5.1); Protein, Total 6.6 g/dL (5.8-8.1); Sodium 138 mmol/L (136-145)
[2022-06-26 15:38] LABS: #Basophils 0.1 10x3/uL (0.0-0.2); #Eosinphils 0.1 10x3/uL (0.0-0.5); #Monocytes 0.9 10x3/uL (0.0-1.1); #Neutrophils 8.9 10x3/uL (1.5-8.4); %Basophils 0.4 % (0.0-2.0); %Eosinophils 0.8 % (0.0-6.0); %Lymphocytes 11.9 % (18.0-47.0); %Monocytes 7.6 % (0.0-10.0); %Neutrophils 78.6 % (40.0-75.0); Hemoglobin 12.4 g/dL (12.0-15.5); Mean Corpuscular HGB CONC 33.5 g/dL (32.0-36.0); Mean Corpuscular Hemoglobin 32.6 pg (27.0-33.0); Mean Corpuscular Volume 97.4 fl (81.6-98.3); Mean Platelet Volume 8.9 fl (7.4-10.4); Platelet Count 477 10x3/uL (150-450); RBC Distribution Width 12.3 % (11.5-14.5); White Blood Cell (WBC) Count 11.3 10x3/uL (3.5-10.5)
[2022-06-26] MEDS ORDERED: Ketorolac Tromethamine 30 MG/ML VIAL ONE (15:50)
[2022-06-26] MEDS ORDERED: methylPREDNISolone Sod Succ/PF 125 MG/2 ML VIAL ONE (15:50)
[2022-06-26 15:54] LABS: Platelet Morphology Comment Appears Adequate; RBC Morphology Normal
[2022-06-26 15:56] LABS: Syphilis Antibody Nonreactive (Nonreactive); Syphilis Antibody Index 0.07 S/CO (<1.00 Non-Reactive)
[2022-06-26] MEDS ORDERED: Magnesium 2 GM/50 ML BAG (IN WATER) ONE (16:23)
[2022-06-26] MEDS ORDERED: Ipratropium/Albuterol 3 ML NEB ONE ×2 (16:38→19:58)
[2022-06-26] MEDS ORDERED: Ondansetron PF 4 MG/2 ML Vial IVP PRN (17:00)
[2022-06-26] MEDS ORDERED: Ondansetron ODT 4 MG TAB PO PRN (17:00)
[2022-06-26] MEDS ORDERED: Nicotine 14 MG PATCH ONE (19:20)
[2022-06-26] MEDS ORDERED: Azithromycin 500 MG VIAL ONE (19:20)
[2022-06-26] MEDS: Sodium Chloride 0.9% 1,000 ML IV SCH (19:39)
[2022-06-26] MEDS: Azithromycin 500 MG in Sodium Chloride 0.9% 250 ML 250 ML IVPB SCH (19:40)
[2022-06-26] MEDS ORDERED: Acetaminophen 325 MG TAB ONE (19:47)
[2022-06-26] MEDS: Acetaminophen 325 MG TAB PO PRN (19:48)
[2022-06-26] MEDS: Ipratropium/Albuterol 3 ML NEB NEB SCH (20:00)
[2022-06-26] MEDS ORDERED: Nicotine 14 MG PATCH TD SCH (20:00)
[2022-06-26] MEDS: Cefepime 2 GM in Sodium Chloride 0.9% 100 ML IVPB SCH (21:58)
[2022-06-26 22:57] VITALS: BMI 22.3
[2022-06-26] MEDS: HYDROcodone/Acetaminophen 10/325 mg Tablet PO PRN (23:36)
[2022-06-26] MEDS: methylPREDNISolone Sod Succ 40 MG VIAL IVP SCH (23:37)
[2022-06-26] MEDS ORDERED: diphenhydrAMINE 50 MG CAP PO SCH (23:59)
[2022-06-27] MEDS: Ipratropium/Albuterol 3 ML NEB NEB SCH ×4 (00:27→19:23)
[2022-06-27] MEDS: Guaifenesin DM 100-10/5 ML UDCUP PO PRN ×2 (01:34→23:14)
[2022-06-27] MEDS: Acetaminophen 325 MG TAB PO PRN (03:22)
[2022-06-27 03:59] LABS: #Monocytes 0.1 10x3/uL (0.0-1.1); #Neutrophils 6.5 10x3/uL (1.5-8.4); %Basophils 0.1 % (0.0-2.0); %Lymphocytes 5.7 % (18.0-47.0); %Monocytes 1.4 % (0.0-10.0); %Neutrophils 92.2 % (40.0-75.0); Mean Corpuscular HGB CONC 34.2 g/dL (32.0-36.0); Mean Corpuscular Volume 96.7 fl (81.6-98.3); Mean Platelet Volume 8.7 fl (7.4-10.4); Platelet Count 400 10x3/uL (150-450); RBC Distribution Width 12.2 % (11.5-14.5); Red Blood Cell (RBC) Count 3.33 10x6/uL (3.90-5.03)
[2022-06-27 04:09] LABS: Anion Gap 16 mmol/L (10-20); BUN (Urea Nitrogen) 11 mg/dL (9.8-20.1); Calc. Creatinine Clearance 77 mL/min (70-130); Calcium 9.1 mg/dL (7.8-10.44); Carbon Dioxide 23 mmol/L (23-31); Chloride 104 mmol/L (98-107); Estimated GFR 98; Glucose 200 mg/dL (80-115); Potassium 3.5 mmol/L (3.5-5.1); Sodium 139 mmol/L (136-145)
[2022-06-27] MEDS: HYDROcodone/Acetaminophen 10/325 mg Tablet PO PRN ×3 (05:47→20:57)
[2022-06-27] MEDS: methylPREDNISolone Sod Succ 40 MG VIAL IVP SCH ×4 (05:49→23:14)
[2022-06-27] MEDS: Cefepime 2 GM in Sodium Chloride 0.9% 100 ML IVPB SCH ×3 (05:53→20:45)
[2022-06-27] MEDS: Sodium Chloride 0.9% 1,000 ML IV SCH (07:41)
[2022-06-27 07:55] LABS: ALT (SGPT) 87 U/L (8-55); AST (SGOT) 68 U/L (5-34); Albumin 3.4 g/dL (3.4-4.8); Alkaline Phosphatase 127 U/L (40-110); Bilirubin, Direct 0.2 mg/dL (0.1-0.3); Bilirubin, Total 0.4 mg/dL (0.2-1.2)
[2022-06-27] MEDS ORDERED: Acetaminophen 325 MG TAB PO PRN (11:04)
[2022-06-27] MEDS ORDERED: BACLOFEN 20 MG PO PRN (11:14)
[2022-06-27] MEDS ORDERED: Loratadine 10 MG TAB PO SCH (11:15)
[2022-06-27] MEDS ORDERED: Polyethylene Glycol 3350 17 GM Packet PO PRN (11:21)
[2022-06-27] MEDS: Loratadine 10 MG TAB PO SCH (12:35)
[2022-06-27] MEDS: Baclofen 10 MG TAB PO PRN (12:39)
[2022-06-27] MEDS: Nicotine 14 MG PATCH TD PRN (12:39)
[2022-06-27] MEDS ORDERED: Potassium Chloride 20 MEQ TAB PO SCH (13:00)
[2022-06-27] MEDS ORDERED: Electrolyte Replacement Protocol 1 EACH FS SCH (13:00)
[2022-06-27] MEDS: Gabapentin 300 MG CAP PO SCH ×2 (14:49→20:45)
[2022-06-27] MEDS: Azithromycin 500 MG in Sodium Chloride 0.9% 250 ML 250 ML IVPB SCH (20:44)
[2022-06-27] MEDS: guaiFENesin ER 600 MG TAB PO SCH (20:45)
[2022-06-28] MEDS: Ipratropium/Albuterol 3 ML NEB NEB SCH ×4 (00:05→21:44)
[2022-06-28] MEDS: HYDROcodone/Acetaminophen 10/325 mg Tablet PO PRN ×2 (02:56→20:36)
[2022-06-28 03:51] LABS: Anion Gap 15 mmol/L (10-20); BUN (Urea Nitrogen) 9 mg/dL (9.8-20.1); Calc. Creatinine Clearance 81 mL/min (70-130); Calcium 9.1 mg/dL (7.8-10.44); Carbon Dioxide 21 mmol/L (23-31); Chloride 108 mmol/L (98-107); Estimated GFR 100; Glucose 175 mg/dL (80-115); Sodium 140 mmol/L (136-145)
[2022-06-28 03:56] LABS: #Monocytes 0.4 10x3/uL (0.0-1.1); #Neutrophils 11.6 10x3/uL (1.5-8.4); %Basophils 0.2 % (0.0-2.0); %Lymphocytes 4.2 % (18.0-47.0); %Monocytes 3.4 % (0.0-10.0); %Neutrophils 90.3 % (40.0-75.0); Hemoglobin 10.4 g/dL (12.0-15.5); Mean Corpuscular HGB CONC 33.8 g/dL (32.0-36.0); Mean Corpuscular Hemoglobin 33.3 pg (27.0-33.0); Mean Corpuscular Volume 98.7 fl (81.6-98.3); Mean Platelet Volume 8.8 fl (7.4-10.4); Platelet Count 442 10x3/uL (150-450); RBC Distribution Width 12.4 % (11.5-14.5); Red Blood Cell (RBC) Count 3.12 10x6/uL (3.90-5.03); White Blood Cell (WBC) Count 12.8 10x3/uL (3.5-10.5)
[2022-06-28] MEDS: methylPREDNISolone Sod Succ 40 MG VIAL IVP SCH ×3 (05:46→21:27)
[2022-06-28] MEDS: Guaifenesin DM 100-10/5 ML UDCUP PO PRN ×3 (05:46→20:37)
[2022-06-28] MEDS: Cefepime 2 GM in Sodium Chloride 0.9% 100 ML IVPB SCH ×3 (05:46→20:35)
[2022-06-28] MEDS ORDERED: Magnesium 2 GM/50 ML(in water) 2 GM in Premix Bag 1 BAG IVPB SCH (08:00)
[2022-06-28] MEDS ORDERED: Insulin Regular 300 UNITS/3 ML VIAL SC PRN ×2 (08:09)
[2022-06-28] MEDS ORDERED: Dextrose 50% Abboject 50 ML SYRINGE SLOW IVP PRN (08:09)
[2022-06-28] MEDS ORDERED: Dextrose 5% in Water 1,000 ML IV PRN (08:09)
[2022-06-28] MEDS: Citalopram 20 MG TAB PO SCH (09:43)
[2022-06-28] MEDS: Multivit, Therapeutic 1 TAB PO SCH (09:44)
[2022-06-28] MEDS: Gabapentin 300 MG CAP PO SCH ×3 (09:44→20:37)
[2022-06-28] MEDS: guaiFENesin ER 600 MG TAB PO SCH ×2 (09:44→20:37)
[2022-06-28] MEDS: Loratadine 10 MG TAB PO SCH (09:44)
[2022-06-28] MEDS: Atorvastatin Calcium 20 MG TAB PO SCH (09:44)
[2022-06-28] MEDS ORDERED: Mag-Al 1200 mg/1200 mg/30 ML UDCUP PO PRN (10:55)
[2022-06-28 11:50] LABS: Troponin I 0.031 ng/mL (< 0.028)
[2022-06-28] MEDS: Nicotine 14 MG PATCH TD PRN (14:17)
[2022-06-28 17:50] LABS: Troponin I Less than 0.010 ng/mL (< 0.028)
[2022-06-28] MEDS ORDERED: Aspirin 81 mg Enteric Coated Tablet PO SCH (18:00)
[2022-06-28 20:20] LABS: Troponin I Less than 0.010 ng/mL (< 0.028)
[2022-06-28] MEDS: Azithromycin 500 MG in Sodium Chloride 0.9% 250 ML 250 ML IVPB SCH (20:36)
[2022-06-29] MEDS: Ipratropium/Albuterol 3 ML NEB NEB SCH ×4 (01:15→20:20)
[2022-06-29 04:23] LABS: #Monocytes 0.5 10x3/uL (0.0-1.1); #Neutrophils 7.2 10x3/uL (1.5-8.4); %Basophils 0.1 % (0.0-2.0); %Lymphocytes 10.3 % (18.0-47.0); %Monocytes 5.2 % (0.0-10.0); %Neutrophils 82.6 % (40.0-75.0); Mean Corpuscular HGB CONC 32.5 g/dL (32.0-36.0); Mean Corpuscular Hemoglobin 32.6 pg (27.0-33.0); Mean Corpuscular Volume 100.3 fl (81.6-98.3); Mean Platelet Volume 8.6 fl (7.4-10.4); Platelet Count 442 10x3/uL (150-450); RBC Distribution Width 12.7 % (11.5-14.5); Red Blood Cell (RBC) Count 3.07 10x6/uL (3.90-5.03); White Blood Cell (WBC) Count 8.8 10x3/uL (3.5-10.5)
[2022-06-29 04:35] LABS: ALT (SGPT) 65 U/L (8-55); AST (SGOT) 27 U/L (5-34); Alkaline Phosphatase 96 U/L (40-110); Anion Gap 13 mmol/L (10-20); BUN (Urea Nitrogen) 10 mg/dL (9.8-20.1); Bilirubin, Total 0.2 mg/dL (0.2-1.2); Calc. Creatinine Clearance 82 mL/min (70-130); Calcium 8.6 mg/dL (7.8-10.44); Carbon Dioxide 26 mmol/L (23-31); Chloride 108 mmol/L (98-107); Estimated GFR 100; Glucose 124 mg/dL (80-115); Potassium 4.6 mmol/L (3.5-5.1); Sodium 142 mmol/L (136-145)
[2022-06-29] MEDS: Cefepime 2 GM in Sodium Chloride 0.9% 100 ML IVPB SCH ×3 (05:43→22:26)
[2022-06-29] MEDS: methylPREDNISolone Sod Succ 40 MG VIAL IVP SCH ×3 (05:43→22:28)
[2022-06-29] MEDS: HYDROcodone/Acetaminophen 10/325 mg Tablet PO PRN ×3 (05:50→20:36)
[2022-06-29] MEDS: Multivit, Therapeutic 1 TAB PO SCH (08:28)
[2022-06-29] MEDS: Aspirin 81 mg Enteric Coated Tablet PO SCH (08:28)
[2022-06-29] MEDS: Atorvastatin Calcium 20 MG TAB PO SCH (08:28)
[2022-06-29] MEDS: guaiFENesin ER 600 MG TAB PO SCH ×2 (08:29→20:36)
[2022-06-29] MEDS: Citalopram 20 MG TAB PO SCH (08:29)
[2022-06-29] MEDS: Gabapentin 300 MG CAP PO SCH ×3 (08:29→20:36)
[2022-06-29] MEDS: Loratadine 10 MG TAB PO SCH (08:29)
[2022-06-29] MEDS ORDERED: Cyanocobalamin (Vitamin B-12) 1,000 MCG TAB PO SCH (09:00)
[2022-06-29] MEDS ORDERED: Folic Acid 1 MG TAB PO SCH (09:00)
[2022-06-29] MEDS: Guaifenesin DM 100-10/5 ML UDCUP PO PRN (18:51)
[2022-06-29] MEDS: Azithromycin 500 MG in Sodium Chloride 0.9% 250 ML 250 ML IVPB SCH (20:36)
[2022-06-30] MEDS: Ipratropium/Albuterol 3 ML NEB NEB SCH ×4 (01:50→19:55)
[2022-06-30] MEDS: Guaifenesin DM 100-10/5 ML UDCUP PO PRN (04:31)
[2022-06-30] MEDS: HYDROcodone/Acetaminophen 10/325 mg Tablet PO PRN ×4 (04:31→22:03)
[2022-06-30] MEDS: Multivit, Therapeutic 1 TAB PO SCH (08:26)
[2022-06-30] MEDS: Aspirin 81 mg Enteric Coated Tablet PO SCH (08:26)
[2022-06-30] MEDS: Atorvastatin Calcium 20 MG TAB PO SCH (08:26)
[2022-06-30] MEDS: guaiFENesin ER 600 MG TAB PO SCH ×2 (08:26→21:06)
[2022-06-30] MEDS: Citalopram 20 MG TAB PO SCH (08:26)
[2022-06-30] MEDS: Cefdinir 300 MG CAP PO SCH ×2 (08:26→21:06)
[2022-06-30] MEDS: Loratadine 10 MG TAB PO SCH (08:27)
[2022-06-30] MEDS: Baclofen 10 MG TAB PO PRN (08:27)
[2022-06-30] MEDS: predniSONE 20 MG TAB PO SCH ×2 (08:27→16:01)
[2022-06-30] MEDS: Gabapentin 300 MG CAP PO SCH ×3 (08:27→21:07)
[2022-06-30] MEDS ORDERED: Polyethylene Glycol 3350 17 GM Packet PO SCH (21:00)
[2022-06-30] MEDS: Senokot S 8.6-50 MG TAB PO SCH (21:07)
[2022-06-30] MEDS: Metamucil PACK PO SCH (21:08)
[2022-07-01] MEDS: Ipratropium/Albuterol 3 ML NEB NEB SCH ×3 (02:05→13:23)
[2022-07-01] MEDS: HYDROcodone/Acetaminophen 10/325 mg Tablet PO PRN ×3 (05:51→12:35)
[2022-07-01] MEDS: Multivit, Therapeutic 1 TAB PO SCH (08:26)
[2022-07-01] MEDS: Aspirin 81 mg Enteric Coated Tablet PO SCH (08:26)
[2022-07-01] MEDS: Gabapentin 300 MG CAP PO SCH (08:26)
[2022-07-01] MEDS: Citalopram 20 MG TAB PO SCH (08:26)
[2022-07-01] MEDS: Cefdinir 300 MG CAP PO SCH (08:27)
[2022-07-01] MEDS: Atorvastatin Calcium 20 MG TAB PO SCH (08:27)
[2022-07-01] MEDS: Loratadine 10 MG TAB PO SCH (08:27)
[2022-07-01] MEDS: predniSONE 20 MG TAB PO SCH (08:27)
[2022-07-01] MEDS: Baclofen 10 MG TAB PO PRN (08:27)
[2022-07-01] MEDS: guaiFENesin ER 600 MG TAB PO SCH (08:27)
[2022-07-01] MEDS: Senokot S 8.6-50 MG TAB PO SCH (08:27)
[2022-07-01] MEDS: Metamucil PACK PO SCH (08:28)
[2022-07-01] MEDS: Nicotine 14 MG PATCH TD PRN (10:12)
[2022-07-01 11:40] VITALS: BP 137/78; TEMP 98.2
== END 2022-07-01 15:01 | disposition home or self-care (01) | DRG 871 ==
LOC: CSHERS 13:30 → CSHERHOLD 18:34 → CSHTELE 21:41 → OBSVTOIN 06-28 10:06
PROVIDERS: ADMIT Internal Medicine; ATTEND Internal Medicine
DX: A41.50 Gram-negative sepsis, unspecified (principal); J12.9 Viral pneumonia, unspecified; J15.6 Pneumonia due to other Gram-negative bacteria; J96.01 Acute respiratory failure with hypoxia; J44.1 Chronic obstructive pulmonary disease with (acute) exacerbation; J44.0 Chronic obstructive pulmonary disease with (acute) lower respiratory infection; I50.42 Chronic combined systolic (congestive) and diastolic (congestive) heart failure; E78.5 Hyperlipidemia, unspecified; F31.9 Bipolar disorder, unspecified; F17.210 Nicotine dependence, cigarettes, uncomplicated; Z20.822 Contact with and (suspected) exposure to COVID-19; G89.4 Chronic pain syndrome; E78.00 Pure hypercholesterolemia, unspecified; F41.9 Anxiety disorder, unspecified; D64.9 Anemia, unspecified; I08.1 Rheumatic disorders of both mitral and tricuspid valves; Z91.013 Allergy to seafood; Z91.09 Other allergy status, other than to drugs and biological substances; Z79.899 Other long term (current) drug therapy; Z90.710 Acquired absence of both cervix and uterus; Z98.890 Other specified postprocedural states
CPT/HCPCS: 36415; 70450; 71045; 80048; 80053; 80076; 83605; 83735; 83880; 84145; 84484; 85025; 86780; 87040; 93005; 93306; 94640; 94667; 94668; 94760; 94762; 94799; 96372; 96375; 96376; G0378; J0456; J0692; J1650; J1885; J2920; J2930; J3475; J3490; J7050; J7512; J7620

== ENCOUNTER 2024-01-23 12:03 | Emergency (ER) | payer OTHER, MEDICAID ==
[2024-01-23] MEDS ORDERED: Iopamidol 300 61% 100 ML VIAL FS ONE (12:06)
[2024-01-23 13:56] LABS: Bilirubin 1+ (Negative); Blood, Urine Negative (Negative); Clarity Clear (Clear); Glucose, Urine (Dipstick) Normal (Negative); Ketone, Urine 5 mg/dL (Negative); Leukocyte 100 (Negative); Nitrite Negative (Negative); Protein, Urine (Dipstick) 30 mg/dl (Neg-Trace); Specific Gravity, Urine 1.025 (1.005-1.030)
[2024-01-23 14:10] LABS: #Basophils 0.02 10x3/uL (0.0-0.2); #Monocytes 0.57 10x3/uL (0.0-1.1); #Neutrophils 3.61 10x3/uL (1.5-8.4); %Basophils 0.3 % (0.0-2.0); %Eosinophils 4.9 % (0.0-6.0); %Lymphocytes 26.4 % (18.0-47.0); %Monocytes 9.3 % (0.0-10.0); %Neutrophils 58.8 % (40.0-75.0); Hematocrit 41.8 % (34.9-44.5); Hemoglobin 13.5 g/dL (12.0-15.5); Mean Corpuscular HGB CONC 32.3 g/dL (32.0-36.0); Mean Corpuscular Hemoglobin 31.8 pg (27.0-33.0); Mean Corpuscular Volume 98.4 fL (81.6-98.3); Mean Platelet Volume 9.2 fL (7.4-10.4); Platelet Count 247 10x3/uL (150-450); RBC Distribution Width 13.9 % (11.5-14.5); Red Blood Cell (RBC) Count 4.25 10x6/uL (3.90-5.03); White Blood Cell (WBC) Count 6.1 10x3/uL (3.5-10.5)
[2024-01-23 14:19] LABS: CAUTI Indications for Culture Pelvic or flank pain; RBC/HPF 0-3 HPF (0-3)
[2024-01-23 14:20] LABS: Bacteria/HPF 2+ HPF (None Seen)
[2024-01-23 14:22] LABS: Urine Culture Reflex No No
[2024-01-23 14:25] LABS: ALT (SGPT) 17 U/L (8-55); AST (SGOT) 14 U/L (5-34); Albumin 4.1 g/dL (3.4-4.8); Alkaline Phosphatase 108 U/L (40-110); Anion Gap 16 mmol/L (10-20); BUN (Urea Nitrogen) 8 mg/dL (9.8-20.1); Bilirubin, Total 0.3 mg/dL (0.2-1.2); Calc. Creatinine Clearance 0 mL/min (70-130); Calcium 9.9 mg/dL (7.8-10.44); Carbon Dioxide 25 mmol/L (23-31); Chloride 103 mmol/L (98-107); Estimated GFR 88; Globulin 3.4 g/dL (2.4-3.5); Glucose 90 mg/dL (80-115); Potassium 4.2 mmol/L (3.5-5.1); Protein, Total 7.5 g/dL (5.8-8.1); Sodium 140 mmol/L (136-145)
[2024-01-23] MEDS ORDERED: Ondansetron PF 4 MG/2 ML Vial ONE (14:48)
[2024-01-23] MEDS ORDERED: Morphine 4 MG/ML VIAL ONE (14:48)
[2024-01-23 15:00] LABS: Lipase 13 U/L (8-78); Magnesium 1.9 mg/dL (1.6-2.6)
== END 2024-01-23 16:35 | disposition home or self-care (01) ==
LOC: CSHERS 12:03
DX: A08.4 Viral intestinal infection, unspecified (principal); J44.9 Chronic obstructive pulmonary disease, unspecified; F17.210 Nicotine dependence, cigarettes, uncomplicated
CPT/HCPCS: 74177; 80053; 81001; 83690; 83735; 85025; 87086; 96374; 96375; 99284; J2272; J2405; Q9967

== ENCOUNTER 2024-11-29 12:33 | Outpatient (CLI) | payer OTHER, MEDICAID | END 2024-11-29 12:34 | disposition home or self-care (01) | LOC: CSHCT 12:33 | PROVIDERS: ATTEND Family Medicine | DX: Z12.2 Encounter for screening for malignant neoplasm of respiratory organs (principal); F17.210 Nicotine dependence, cigarettes, uncomplicated; R91.8 Other nonspecific abnormal finding of lung field | CPT/HCPCS: 71271 ==

== ENCOUNTER 2024-11-29 13:04 | Outpatient (CLI) | payer OTHER | END 2024-11-29 13:05 | disposition home or self-care (01) | LOC: CSHMAMMO 13:04 | PROVIDERS: ATTEND Family Medicine | DX: Z12.31 Encounter for screening mammogram for malignant neoplasm of breast (principal); Z80.3 Family history of malignant neoplasm of breast; Z85.43 Personal history of malignant neoplasm of ovary; Z85.038 Personal history of other malignant neoplasm of large intestine; Z85.89 Personal history of malignant neoplasm of other organs and systems; Z91.89 Other specified personal risk factors, not elsewhere classified | CPT/HCPCS: 77063; 77067 ==

== ENCOUNTER 2024-12-23 12:07 | Outpatient (CLI) | payer OTHER | END 2024-12-23 12:08 | disposition home or self-care (01) | LOC: CSHCP 12:07 | PROVIDERS: ATTEND Internal Medicine | DX: J44.9 Chronic obstructive pulmonary disease, unspecified (principal) | CPT/HCPCS: 94060; 94726; 94729; 94760 ==